=== PATIENT | male | born 1950 | race Caucasian/White ===

== ENCOUNTER 2019-07-15 15:34 | Emergency (ER) | payer OTHER, MEDICARE ==
[2019-07-15] MEDS ORDERED: DIPHTH,PERTUSS(ACELL),TET 0.5 ML DISP.SYRIN IM ONE ×2 (15:46→16:09)
--- NOTE | 2019-07-15 15:46 | PDOC ---
Rapid Medical Evaluation Time Seen by Provider: 07/15/19 15:44 Medical Evaluation: 07/15/19 15:44 I have performed a brief in-person evaluation of this patient. The patient presents with a chief complaint of: fingertip avulsion Pertinent physical exam findings:stable and in NAD, non-focal I have ordered the following: tdap The patient will proceed to the ED for further evaluation.
[2019-07-15 15:47] VITALS: BP 136/77; PULSE 89; TEMP 98; BMI 28.6
--- NOTE | 2019-07-15 16:26 | PDOC ---
History of Present Illness - General Chief Complaint: Injury Stated Complaint: CUT FINGERTIP RT HAND Time Seen by Provider: 07/15/19 15:44 History Source: Patient Exam Limitations: No Limitations Past History - Travel Traveled outside of the country in the last 30 days: No Close contact w/someone who was outside of country & ill: No - Past Medical History Allergies/Adverse Reactions: Allergies Allergy/AdvReac Type Severity Reaction Status Date / Time No Known Allergies Allergy Verified 07/15/19 15:47 Home Medications: Ambulatory Orders Amox-Tr/K Cl [Augmentin - 875Mg Tablet] 1 tab PO BID #14 tablet 07/15/19 COPD: No - Psycho Social/Smoking Cessation Hx Smoking History: Never smoked Review of Systems - Review of Systems Able to Perform ROS?: Yes Is the patient limited [place] proficient: No *Physical Exam - Vital Signs Last Vital Signs Temp Pulse Resp BP Pulse Ox 98 F 89 18 136/77 98 07/15/19 15:43 07/15/19 15:43 07/15/19 15:43 07/15/19 15:43 07/15/19 15:43 Discharge - Discharge Information Problems reviewed: Yes Clinical Impression/Diagnosis: Skin avulsion Condition: Stable Disposition: HOME - Admission No - Follow up/Referral Referrals: Roderick Ji MD [Staff Physician] - - Patient Discharge Instructions Patient Printed Discharge Instructions: DI for Avulsion Laceration (Not Requiring Sutures) Additional Instructions: You were evaluated today for your avulsion laceration. We are unable to close the wound because there was no skin flap to close. Your x-ray was negative for broken bones. The wound was cleaned and a dressing was placed. Keep the dressing on for 24 hours and keep it dry. Do not soak the hand until the wound is healed. Please take the Augmentin twice a day for 1 week to prevent infection. Please follow-up with your primary care doctor on Friday for a wound check. Return to the ER for increasing pain to the finger, purulent drainage from the site, redness to the finger, finger swelling or if you have any changes in your symptoms. - Post Discharge Activity
== END 2019-07-15 17:14 | disposition home or self-care (01) ==
LOC: JERFT 15:34
PROC: 3E0234Z Introduction of Serum, Toxoid and Vaccine into Muscle, Percutaneous Approach (ICD-10-PCS; principal; 2019-07-15)
DX: S61.209A Unspecified open wound of unspecified finger without damage to nail, initial encounter (principal); W28.XXXA Contact with powered lawn mower, initial encounter; Y93.89 Activity, other specified; Y92.89 Other specified places as the place of occurrence of the external cause; Y99.8 Other external cause status
CPT/HCPCS: 73130-TC-LT-FY; 90715; 99281-25